=== PATIENT | female | born 1965 | race African-American/Black ===

== ENCOUNTER 2016-05-13 09:16 | Emergency (ER) | payer OTHER ==
[~2016-05-13] VITALS: Wt 51.3 kg
[~2016-05-13 09:16] MED LIST: BACTDS PO; HYDR-3498 PO; NAPR-260 PO; TRAZ50TA18 PO
[2016-05-13 10:24] LABS: ADD UMIC YES; URINE BILIRUBIN (Dip) NEGATIVE (NEGATIVE); URINE BLOOD (Dip) NEGATIVE (NEGATIVE); URINE COLOR LT. YELLOW (YELLOW); URINE GLUCOSE (Dip) NEGATIVE (NEGATIVE); URINE KETONES (Dip) NEGATIVE (NEGATIVE); URINE LEUKOCYTE ESTERASE (Dip) 2+ (NEGATIVE); URINE NITRITE (Dip) NEGATIVE (NEGATIVE); URINE TOTAL PROTEIN (Dip) NEGATIVE (NEGATIVE); URINE UROBILINOGEN (Dip) 0.2 E.U./dL (0.1-1.0)
[2016-05-13 10:44] LABS: SQUAMOUS EPITHELIAL CELL,UR FEW; URINE RBCS >200 /HPF (0)
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
[2016-05-13] MEDS ORDERED: BACTDS PO (10:51)
[2016-05-13] MEDS ORDERED: FLUC150T17 PO (10:53)
== END 2016-05-13 10:59 | disposition home or self-care (01) ==
LOC: FTE 09:16
DX: N76.0 Acute vaginitis (principal); N39.0 Urinary tract infection, site not specified
CPT/HCPCS: 81001; 81003; 87081; 87591; 99284

== ENCOUNTER 2016-07-25 07:42 | Emergency (ER) | payer OTHER ==
[~2016-07-25] VITALS: Ht 152.4 cm; Wt 50.5 kg
[~2016-07-25 07:42] MED LIST changes: +FLUC150T17 PO
[2016-07-25 07:44] VITALS: Ht 152.4 cm; Wt 50.5 kg
[2016-07-25] MEDS ORDERED: IBUPROFEN 600 MG TAB PO ONE (08:30)
--- NOTE | 2016-07-25 09:07 | RADRPT ---
PROCEDURE: XR Femur. CLINICAL INDICATION: Left leg pain. TECHNIQUE: AP and lateral views of the left femur were performed. COMPARISON: None. FINDINGS: There is no fracture or dislocation. The soft tissues are normal. Articular surfaces are intact. There is no lytic or blastic lesion. There is no radiopaque foreign body. IMPRESSION: 1. Normal images of the left femur. RPTAT: QQ .Josep Ortiz MD, MD Date Time Electronically viewed and signed by .Josep Ortiz MD, on 07/25/2016 09:07 .R/
--- NOTE | 2016-07-25 09:16 | ERD ---
ER Documentation Chief Complaint Date/Time DATE: 07/25/16 TIME: 09:07 Chief Complaint intermittent left leg pain since 2013 HPI This is a 51-year-old female that presents to the ER for intermittent left upper leg pain that started in 2012. 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 Patient states that resting makes her pain better, walking and movement makes it worse. Patient tried a massage and applying BenGay to the area which helps, however pain returns. Area is tender to the touch. She denies any numbness tingling or weakness of her extremity. She denies any recent trauma. Patient denies any fevers or chills. ROS 12 point review of systems was done, all negative except per HPI. Medications Home Meds Active Scripts Ibuprofen* (Motrin*) 600 Mg Tab, 600 MG PO Q6, #30 TAB Prov:CHARLOTTE YUEN 07/25/16 Fluconazole* (Diflucan*) 150 Mg Tablet, 150 MG PO ONCE for vaginitis , #1 TAB Prov:NIKO,EVAN 05/13/16 Sulfamethoxazole-Trimethoprim* (Bactrim* DS) 800-160 Mg Tab, 1 TAB PO BID for 5 Days, TAB Prov:NIKO,EVAN 05/13/16 Hydrocodone Bit-Acetaminophen* ([place]*) 5-325 Mg Tab, 1 TAB PO Q6 Y for PAIN, # 3 TAB Prov:CARLOS GUERRERO DO 07/21/15 Naproxen* (Naprosyn*) 500 Mg Tablet, 500 MG PO BID Y for PAIN AND/OR INFLAMMATION, #14 TAB Prov:CARLOS GUERRERO DO 07/21/15 Sulfamethoxazole-Trimethoprim* (Bactrim* DS) 800-160 Mg Tab, 1 TAB PO BID, #6 TAB Prov:CARLOS GUERRERO DO 12/10/14 Trazodone Hcl* (Trazodone Hcl*) 50 Mg Tablet, 50 MG PO BID for AGITATION/ANXIETY , #10 TAB Prov:LING CHU 08/16/14 Allergies Allergies: Coded Allergies: amoxicillin (Verified Allergy, Unknown, 07/25/16) PMhx/Soc History of Surgery: Yes () Anesthesia Reaction: No Hx Neurological Disorder: No Hx Respiratory Disorders: No Hx Cardiac Disorders: No Hx Psychiatric Problems: No Hx Miscellaneous Medical Probl: Yes (DEPRESSION, PANIC ATTACKS) Hx Alcohol Use: No Hx Substance Use: No Hx Tobacco Use: No Smoking Status: Never smoker Physical Exam Vitals Vital Signs Date Time Temp Pulse Resp B/P Pulse Ox O2 Delivery O2 Flow Rate FiO2 07/25/16 07:44 98.0 66 18 110/59 100 Physical Exam GENERAL: The patient is well developed and appropriate for usual state of health , in no apparent distress. HEENT: Atraumatic. CHEST: Clear to auscultation bilaterally. There are no rales, wheezes or rhonchi. HEART: Regular rate and rhythm. No murmurs, clicks, rubs or gallops. EXTREMITIES: Left leg: Patient is tender to palpation along the proximal femur. Patient has painful hip adduction. Patient is not TTP to the mid/distal femur. She is not TTP to the left knee and has full ROM. patient's sensations are intact to L4, L5, S1. NEURO: Alert and oriented. Cranial nerves II through XII are intact. SKIN: There is no apparent rash or petechia. The skin is warm and dry. Results 24 hrs Current Medications Medications (Trade) Dose Ordered Sig/Christ Route PRN Reason Start Time Stop Time Status Last Admin Dose Admin Ibuprofen (Motrin) 600 mg ONCE ONCE PO 07/25/16 08:30 07/25/16 08:31 DC 07/25/16 08:15 Procedures/MDM This is a 51-year-old female presents to the ER with intermittent left upper leg pain for the last 4 years. She lives a very active lifestyle this may be an overuse injury. At this time there is no evidence of fracture or dislocation. Patient has full range of motion of her lower extremity and is neurovascularly intact. Patient was given ibuprofen for pain. She was told to follow-up with her primary care doctor and possibly get physical therapy. Patient is afebrile and well-appearing suspicion for osteomyelitis, septic joint , septic arthritis, deep space infection, myositis, rhabdo, is low. Patient is to follow-up with her primary care doctor within 1-2 days or return to ER sooner if symptoms worsen. My medical decision making was shared with the patient she understands and agrees with plan. Disposition: home; stable Departure Diagnosis: Primary Impression: Leg pain Condition: Stable CHARLOTTE YUEN July 25, 2016 09:16
[2016-07-25] MEDS ORDERED: IBUP-1542 PO (09:27)
== END 2016-07-25 09:52 | disposition home or self-care (01) ==
LOC: FTE 07:42
DX: M79.605 Pain in left leg (principal)
CPT/HCPCS: 73550

== ENCOUNTER 2016-08-03 17:42 | Emergency (ER) | payer OTHER ==
[~2016-08-03] VITALS: Ht 152.4 cm; Wt 50.0 kg
[~2016-08-03 17:42] MED LIST changes: +IBUP-1542 PO
[2016-08-03 17:53] VITALS: Ht 152.4 cm; Wt 50.0 kg
[2016-08-03] MEDS ORDERED: LORA-441 PO (19:52)
[2016-08-03 20:06] VITALS: PULSE 69; RESP 18; TEMP 98.6
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
== END 2016-08-03 20:00 | disposition home or self-care (01) ==
LOC: FTE 17:42
DX: S09.90XA Unspecified injury of head, initial encounter (principal); F41.1 Generalized anxiety disorder; Y04.2XXA Assault by strike against or bumped into by another person, initial encounter; Y92.9 Unspecified place or not applicable
CPT/HCPCS: 99283

== ENCOUNTER 2018-01-05 17:07 | Emergency (ER) | END 2018-01-05 18:55 | disposition home or self-care (01) ==

== ENCOUNTER 2018-11-14 01:19 | Emergency (ER) | payer OTHER ==
[~2018-11-14] VITALS: Ht 152.4 cm; Wt 50.3 kg
[~2018-11-14 01:19] MED LIST changes: +ACET500T98 PO; +FLUC150T PO; -FLUC150T17 PO; +HYDR50TA15 PO; +LORA-441 PO; +METH750T93 PO; -NAPR-260 PO; +NAPR-985 PO; +TRAZ-111 PO; -TRAZ50TA18 PO
[2018-11-14 01:23] VITALS: BP 121/63; PULSE 69; RESP 20; Ht 152.4 cm; Wt 50.3 kg
[2018-11-14] MEDS ORDERED: LORAZEPAM 1 MG TAB PO ONE (02:00)
[2018-11-14] MEDS ORDERED: ASPIRIN 325 MG TAB PO ONE (02:00)
== END 2018-11-14 02:23 | disposition home or self-care (01) ==
LOC: FTE 01:19
DX: F41.9 Anxiety disorder, unspecified (principal); F43.9 Reaction to severe stress, unspecified
CPT/HCPCS: 93005